=== PATIENT | female | born 1960 | race Caucasian/White ===

== ENCOUNTER 2016-10-29 14:20 | Emergency (ER) | payer MEDICAID ==
[~2016-10-29] VITALS: Ht 152.4 cm; Wt 96.0 kg
[~2016-10-29 14:20] MED LIST: AZIT250T94 PO; CIPR500T4 PO; D-ME118S6 PO; HYDR-3498 PO; IBUP-1542 PO
[2016-10-29 14:23] VITALS: Ht 152.4 cm; Wt 96.0 kg
[2016-10-29] MEDS ORDERED: DICYCLOMINE 10 MG CAP PO ONE (15:00)
--- NOTE | 2016-10-29 15:19 | RADRPT ---
PROCEDURE: US Abdomen (right upper quadrant). CLINICAL INDICATION: Right upper quadrant abdomen pain. TECHNIQUE: Multiple real-time longitudinal and transverse images of the right upper quadrant of th e abdomen were acquired utilizing a curved array transducer. Images were reviewed on a high-resoluti on PACS workstation. COMPARISON: None FINDINGS: The liver is normal in size and normal in echogenicity. There is no focal hepatic lesion. Color Doppler and pulsed Doppler sonography demonstrate normal a ntegrade flow in the portal vein. Multiple gallstones and sludge are present in the gallbladder. There is no gallbladder wall thicken ing or fluid around the gallbladder. The bile ducts are normal with the common bile duct measuring 4.9 mm in diameter. The pancreas is not visualized due to overlying bowel gas. No free fluid is present. The right kidney measures 10.6 cm. There is normal echogenicity of the right kidney. There is no perinephric fluid collection. No hydronephrosis, mass, or calculus is seen. IMPRESSION: 1. Sludge and stones in the gallbladder. No evidence of cholecystitis. 2. Pancreas not visualized. 3. Otherwise normal ultrasound of the right upper quadrant of the abdomen. RPTAT: QQ .Bruno Edmonds MD, MD Date Time Electronically viewed and signed by .Bruno Edmonds MD, on 10/29/2016 15:19 .R/
[2016-10-29 15:20] VITALS: PULSE 89; TEMP 98.4
[2016-10-29 15:27] LABS: ADD SCAN DIFF NO
[2016-10-29 15:29] LABS: BASOPHIL # 0.1 10^3/ul (0.0-0.1); BASOPHILS % 0.6 % (0.0-2.0); EOSINOPHILS # 0.1 10^3/ul (0.0-0.5); EOSINOPHILS % 1.4 % (0.0-7.0); HEMATOCRIT 42.8 % (37.0-47.0); HEMOGLOBIN 13.9 g/dl (12.0-16.0); LYMPHOCYTES # 2.8 10^3/ul (0.8-2.9); LYMPHOCYTES % 28.5 % (15.0-51.0); MEAN CORPUSCULAR HEMOGLOBIN 27.5 pg (29.0-33.0); MEAN CORPUSCULAR HGB CONC 32.5 g/dl (32.0-37.0); MEAN CORPUSCULAR VOLUME 84.6 fl (82.0-101.0); MEAN PLATELET VOLUME 10.4 fl (7.4-10.4); MONOCYTE # 0.5 10^3/ul (0.3-0.9); MONOCYTES % 5.2 % (0.0-11.0); NEUTROPHIL # 6.4 10^3/ul (1.6-7.5); NEUTROPHILS % 64.1 % (39.0-77.0); PLATELET COUNT 330 10^3/UL (140-415); RED BLOOD COUNT 5.06 10^6/ul (4.20-5.40); RED CELL DISTRIBUTION WIDTH 12.6 % (11.5-14.5); WHITE BLOOD COUNT 9.9 10^3/ul (4.8-10.8)
[2016-10-29 15:38] LABS: ALBUMIN 4.2 g/dl (3.3-4.9); POTASSIUM 4.3 mmol/L (3.5-5.1)
[2016-10-29 15:41] LABS: ADD UMIC YES; URINE BILIRUBIN (Dip) NEGATIVE (NEGATIVE); URINE BLOOD (Dip) NEGATIVE (NEGATIVE); URINE COLOR LT. YELLOW (YELLOW); URINE GLUCOSE (Dip) NEGATIVE (NEGATIVE); URINE KETONES (Dip) NEGATIVE (NEGATIVE); URINE LEUKOCYTE ESTERASE (Dip) TRACE (NEGATIVE); URINE NITRITE (Dip) NEGATIVE (NEGATIVE); URINE TOTAL PROTEIN (Dip) NEGATIVE (NEGATIVE); URINE UROBILINOGEN (Dip) 0.2 E.U./dL (0.1-1.0)
[2016-10-29 15:41] LABS: ALBUMIN/GLOBULIN RATIO 1.1; BILIRUBIN,INDIRECT 0.2 mg/dl (0-1.1); BILIRUBIN,TOTAL 0.2 mg/dl (0.2-1.3); CALCIUM 9.6 mg/dl (8.4-10.2); CREATININE 0.67 mg/dl (0.44-1.00)
[2016-10-29 15:54] LABS: SQUAMOUS EPITHELIAL CELL,UR FEW; URINE RBCS 0-2 /HPF (0)
[2016-10-29] MEDS ORDERED: DICY10CA60 PO (16:32)
[2016-10-29] MEDS ORDERED: NITR-58 PO (16:32)
--- NOTE | 2016-10-29 18:01 | ERD ---
ER Documentation Chief Complaint Date/Time DATE: 10/29/16 TIME: 17:58 Chief Complaint intermittent upper abd pain x 3 months HPI 56-year-old female with a past medical history of arthritis and hypertension presents to the ED complaining of right upper quadrant pain that started intermittently 3 months ago. Reports that the pain is worse with food. States that she is nauseous but denies any vomiting or diarrhea. States that she was seen at [facility] 3 months ago for similar symptoms. States that she has been taking meloxicam for her pain. Reports that she also has some slight dysuria. Denies any chest pain, shortness of breath, fever, chills, wheezing, constipation, diarrhea, vaginal bleeding, vaginal discharge, flank pain. ROS All systems reviewed and are negative except as per history of present illness. Medications Home Meds Active Scripts Nitrofurantoin Monohyd Macrocr* (Macrobid*) 100 Mg Capsr, 100 MG PO BID for 7 Days, CAP Prov:SHAHID WRIGHT PA-C 10/29/16 Dicyclomine Hcl* (Bentyl*) 10 Mg Capsule, 10 MG PO QID, #20 CAP Prov:SHAHID WRIGHT PA-C 10/29/16 Dextromethorphan Hb-Promethazine Hcl (Promethazine DM Syrup) 180 Ml Syrup, 5 ML PO Q6H Y for COUGH, #4 OZ Prov:TEJA OVIEDO MD 12/06/15 Ibuprofen* (Motrin*) 600 Mg Tab, 600 MG PO Q6, #20 TAB Prov:TEJA OVIEDO MD 12/06/15 Azithromycin* (Zithromax*) 250 Mg Tablet, 250 MG PO .ZPACK DIRECTED, #6 TAB TAKE 500 MG (2 TABS) THE FIRST DAY THEN 250 MG (1 TAB) DAYS 2-5 Prov:TEJA OVIEDO MD 12/06/15 Hydrocodone Bit-Acetaminophen* ([place]*) 5-325 Mg Tab, 1 TAB PO DAILY Y for PAIN , #10 TAB 0 Refills Prov:JALIL FUNES PA-C 09/12/15 Ciprofloxacin Hcl* (Ciprofloxacin Hcl*) 500 Mg Tablet, 500 MG PO BID for 7 Days , TAB Prov:KARO MEDINA MD 09/09/15 Allergies Allergies: Coded Allergies: No Known Allergy (Unverified , 10/29/16) PMhx/Soc History of Surgery: Yes (RT KNEE ) Anesthesia Reaction: No Hx Neurological Disorder: No Hx Respiratory Disorders: No Hx Cardiac Disorders: No Hx Psychiatric Problems: No Hx Miscellaneous Medical Probl: No Hx Alcohol Use: No Hx Substance Use: No Hx Tobacco Use: No Physical Exam Vitals Vital Signs Date Time Temp Pulse Resp B/P Pulse Ox O2 Delivery O2 Flow Rate FiO2 10/29/16 15:20 98.4 89 98 Room Air 10/29/16 14:23 89 18 161/98 97 Physical Exam Const: [id number], well-nourished. In no acute distress. Head: Atraumatic, normocephalic Eyes: Normal Conjunctiva without injection. No purulent discharge. ENT: Normal external ear, nose. Moist oropharynx without tonsillar exudates. Non -erythematous pharynx. Uvula midline. No drooling. No trismus. Neck: No cervical midline tenderness. Full range of motion. No meningismus. No cervical lymphadenopathy. No JVD. Resp: Clear to auscultation bilaterally. No wheezing, rhonchi, rales, or crackles. No accessory muscle use. No retractions. Cardio: Regular rate and rhythm. No murmurs, rubs or gallops. Abd: Soft, right upper quadrant tenderness, non distended. Normal bowel sounds. No palpable masses. No rebound tenderness. No guarding. Negative McBurney' s point. Negative psoas sign. Negative obturator sign. Skin: No petechiae or rashes Back: No midline tenderness. No CVA tenderness. Ext: No cyanosis, or edema. Neur: Awake and alert. Normal gait. Normal coordination. Psych: Normal Mood and Affect Results 24 hrs Laboratory Tests Test 10/29/16 15:00 10/29/16 15:10 Urine Color LT. YELLOW Urine Clarity CLEAR Urine pH 6.5 Urine Specific [place] 1.010 Urine Ketones NEGATIVE Urine Nitrite NEGATIVE Urine Bilirubin NEGATIVE Urine Urobilinogen 0.2 E.U./dL Urine Leukocyte Esterase TRACE Urine Microscopic RBC 0-2/HPF Urine Microscopic WBC 5-10/HPF Urine Squamous Epithelial Cells FEW Urine Hemoglobin NEGATIVE Urine Glucose NEGATIVE% Urine Total Protein NEGATIVE White Blood Count 9.910^3/ul Red Blood Count 5.0610^6/ul Hemoglobin 13.9g/dl Hematocrit 42.8% Mean Corpuscular Volume 84.6fl Mean Corpuscular Hemoglobin 27.5pg Mean Corpuscular Hemoglobin Concent 32.5g/dl Red Cell Distribution Width 12.6% Platelet Count 47119^3/UL Mean Platelet Volume 10.4fl Neutrophils % 64.1% Lymphocytes % 28.5% Monocytes % 5.2% Eosinophils % 1.4% Basophils % 0.6% Nucleated Red Blood Cells % 0.0/100WBC Neutrophils # 6.410^3/ul Lymphocytes # 2.810^3/ul Monocytes # 0.510^3/ul Eosinophils # 0.110^3/ul Basophils # 0.110^3/ul Nucleated Red Blood Cells # 0.010^3/ul Sodium Level 141mmol/L Potassium Level 4.3mmol/L Chloride Level 101mmol/L Carbon Dioxide Level 29mmol/L Anion Gap 15 Blood Urea Nitrogen 16mg/dl Creatinine 0.67mg/dl Glucose Level 104mg/dl Calcium Level 9.6mg/dl Total Bilirubin 0.2mg/dl Direct Bilirubin 0.00mg/dl Indirect Bilirubin 0.2mg/dl Aspartate Amino Transf (AST/SGOT) 28IU/L Alanine Aminotransferase (ALT/SGPT) 27IU/L Alkaline Phosphatase 146IU/L Total Protein 8.0g/dl Albumin 4.2g/dl Globulin 3.80g/dl Albumin/Globulin Ratio 1.10 Lipase 125U/L Current Medications Medications (Trade) Dose Ordered Sig/Radha Route PRN Reason Start Time Stop Time Status Last Admin Dose Admin Dicyclomine HCl (Bentyl) 10 mg ONCE ONCE PO 10/29/16 15:00 10/29/16 15:01 DC 10/29/16 15:21 Procedures/MDM This is a 56-year-old female with a past medical history of hypertension and arthritis presents the ED complaining of intermittent right upper quadrant pain that started 3 months ago. Patient is afebrile and nontoxic-appearing. Patient has normal vital signs. Patient was further worked up with CBC, CMP, lipase, UA, gallbladder ultrasound. Patient's pain and symptoms have improved after treatment with Bentyl. CBC: No leukocytosis. No e/o of systemic infection. No e/o anemia. CMP: No e/o severe acidosis, alkalosis, renal failure, diabetic ketoacidosis, liver disease Lipase within normal limits. Urine: Trace leukocyte esterase with 5-10 WBC, no nitrites, no hematuria. PROCEDURE: US Abdomen (right upper quadrant). CLINICAL INDICATION: Right upper quadrant abdomen pain. TECHNIQUE: Multiple real-time longitudinal and transverse images of the right upper quadrant of the abdomen were acquired utilizing a curved array transducer. Images were reviewed on a high-resolution PACS workstation. COMPARISON: None FINDINGS: The liver is normal in size and normal in echogenicity. There is no focal hepatic lesion. Color Doppler and pulsed Doppler sonography demonstrate normal antegrade flow in the portal vein. Multiple gallstones and sludge are present in the gallbladder. There is no gallbladder wall thickening or fluid around the gallbladder. The bile ducts are normal with the common bile duct measuring 4.9 mm in diameter. The pancreas is not visualized due to overlying bowel gas. No free fluid is present. The right kidney measures 10.6 cm. There is normal echogenicity of the right kidney. There is no perinephric fluid collection. No hydronephrosis, mass, or calculus is seen. IMPRESSION: 1. Sludge and stones in the gallbladder. No evidence of cholecystitis. 2. Pancreas not visualized. 3. Otherwise normal ultrasound of the right upper quadrant of the abdomen. Patient symptoms are likely due to biliary colic due to the sludge and stones noted in her gallbladder. Ultrasound shows no evidence of cholecystitis. No leukocytosis noted. No elevated bilirubin or liver enzymes. Low suspicion for cholangitis, atypical AR, pneumonia, choledocholithiasis, pancreatitis, or other emergent conditions. Since patient reports some dysuria as well as trace leukocyte esterase and 5-10 white blood cells were noted, patient will be treated with antibiotics as an outpatient treatment. A differential diagnosis considered includes but is not limited to gastritis, GERD, peptic ulcer disease , cholecystitis, choledocholithiasis, cholangitis, pancreatitis, appendicitis, bowel obstruction, ileus, volvulus, nephrolithiasis, pyelonephritis, hepatitis, perforated viscus, diverticulitis, abdominal hernia, acute abdomen, mesenteric ischemia or other emergent conditions. 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 Instructed patient to return to the ED sooner for any worsening symptoms. Patient's questions were answered. Patient understood and agreed with discharge plan. Patient discharged stable. Departure Diagnosis: Primary Impression: Gallstones Additional Impression: Urinary tract infection Urinary tract infection type: site unspecified Hematuria presence: without hematuria Qualified Code: N39.0 - Urinary tract infection without hematuria, site unspecified Condition: Stable Patient Instructions: Understanding Urinary Tract Infections (UTIs), Biliary Colic With Gallstone (Confirmed) [facility] Usted se hernandez hecho un examen mdico de control que le indica que no est en gregory condicin que requiera tratamiento urgente en el Departamento de Emergencia. Un estudio ms profundo y el tratamiento de rivera condicin pueden esperar sin ningn riesgo hasta que usted sea atendida/o en el consultorio de rivera mdico o gregory cl cele. Es responsabilidad suya arreglar gregory ela para el seguimiento del daniel. MANEJO DE CONDICIONES NO URGENTES EN EL FUTURO 1) Si usted tiene un mdico de atencin primaria: Usted debera llamar a rivera mdico de atencin primaria antes de venir al departamento de emergencia. Despus de las horas de consultorio, rivera doctor o rivera asociado/a est disponible por telfono. El mdico o enfermero de lori en el servicio telefnico puede asesorarle por mirza medio para atender el problema, o daniel contrario se puede programar gregory ela. 2) Si usted no tiene un mdico de atencin primaria: Llame al mdico o clnica de referencia que aparece abajo ramesh las horas de consultorio para hacer gregory ela para que le vean. CLINICAS: [facility] [phone] [phone] [facility] [phone] [facility] [phone] [facility]. [facility] [phone] [address] [facility] [phone] [facility] () Usted se hernandez hecho un examen mdico de control que le indica que no est en gregory condicin que requiera tratamiento urgente en el Departamento de Emergencia. Un estudio ms profundo y el tratamiento de rivera condicin pueden esperar sin ningn riesgo hasta que usted sea atendida/o en el consultorio de rivera mdico o gregory cl cele. Es responsabilidad suya arreglar gregory ela para el seguimiento del daniel. MANEJO DE CONDICIONES NO URGENTES EN EL FUTURO 1) Si usted tiene un mdico de atencin primaria: Usted debera llamar a rivera mdico de atencin primaria antes de venir al departamento de emergencia. Despus de las horas de consultorio, rivera doctor o rivera asociado/a est disponible por telfono. El mdico o enfermero de lori en el servicio telefnico puede asesorarle por mirza medio para atender el problema, o daniel contrario se puede programar gregory ela. 2) Si usted no tiene un mdico de atencin primaria: Llame al mdico o condado institucions de referencia que aparece abajo ramesh las horas de consultorio para hacer gregory ela para que le vean. SI USTED NO PUEDE PAGAR PARA JYOTHI UN MEDICO puede ir a: [facility] [phone] [place] [address] [facility] [address] [place] [address] [facility] [address] [place] [address] [address] [facility] [address] [place] [address] [facility] URGENT CARE/SPECIALTIES Additional Instructions: Visite a rivera mdico maana para un EXAMEN para un referido a un cirujano general. Regrese a estas instalaciones si no se mejora sona esperbamos o sona le yuki. SHAHID WRIGHT PA-C Oct 29, 2016 18:01 lalito mirza. SHAHID WRIGHT PA-C Oct 29, 2016 18:01
== END 2016-10-29 16:55 | disposition home or self-care (01) ==
LOC: FTE 14:20
DX: K80.20 Calculus of gallbladder without cholecystitis without obstruction (principal); N39.0 Urinary tract infection, site not specified; I10 Essential (primary) hypertension
CPT/HCPCS: 76705; 80053; 81001; 83690; 85025; Z7610; 36415; 81003

== ENCOUNTER 2017-11-27 12:31 | Emergency (ER) | END 2017-11-27 14:09 | disposition home or self-care (01) ==